=== PATIENT | female | born 1995 | race Caucasian/White ===

== ENCOUNTER 2017-01-01 14:48 | Emergency (ER) | payer BC ==
[2017-01-01 15:01] VITALS: BP 116/74
[2017-01-01] MEDS ORDERED: Lidocaine 1% 50 ML MDV SUBCUT STA (15:29)
[2017-01-01] MEDS ORDERED: Diphtheria,Pertussis(Acell),Tetanus Vaccine 0.5 ML SDV inactive IM ONE (15:29)
--- NOTE | 2017-01-01 15:29 | EDM.PDOC ---
ED HPI Trauma - General Chief Complaint: Upper Extremity Injury/Pain Stated Complaint: Laceration Time Seen by Provider: 01/01/17 15:20 Source: Reports: Patient, RN notes reviewed History Limitations: Reports: No limitations - History of Present Illness INITIAL COMMENTS - FREE TEXT/NARRATIVE: 21 year old female presents to the ED today with a laceration to the base of her right thumb. 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 Her last tetanus is unknown. The injury occurred around 2pm this afternoon. She has good movement. No loss of sensation. No crush type injury. Allergies/ADRs: Allergies No Known Allergies Allergy (Verified 01/01/17 14:57) Home Medications: Ambulatory Orders . [No Known Home Meds] 07/22/15 [Confirmed 01/01/17] Past Medical History - Past Health History Medical/Surgical History: Denies Medical/Surgical History Social & Family History - Tobacco Use Smoking Status *Q: Never Smoker Second Hand Smoke Exposure: No - Recreational Drug Use Recreational Drug Use: No Review of Systems - Review of Systems Review Of Systems: See Below Constitutional: Reports: no symptoms. Denies: fever Skin: Reports: wound Neurological: Reports: No Symptoms. Denies: Numbness, Tingling Trauma Exam - Physical Exam Exam: See Below Exam Limited By: No limitations General Appearance: Reports: alert, WD/WN, no apparent distress Extremities: Reports: no evidence of injury, normal range of motion, other ( full flexion and extension of right thumb. no tendon injury) Neurologic: Reports: no motor/sensory deficits Skin: Reports: Other (2.5cm laceration to the web between the thumb and index finger. ) ED TRAUMA EXTREMITY PROCEDURES - Laceration/Wound Repair Right Hand Lac/wound length in cm: 2.5 Appearance: subcutaneous, linear, clean Distal NVT: neuro & vascular intact, no tendon injury Anesthetic type: local Local anesthesia - Lidocaine (Xylocaine): 1% plain Local anesthetic volume: 4cc Exploration/Debridement/Repair: wound explored, in a bloodless field, explored to base, no foreign material found Suture size: 4-0 # of sutures: 5 Suture type: nylon, interrupted, simple Tetanus status addressed: Yes (tdap ordered) Complications: No Course - Vital Signs Last Recorded V/S: Last Vital Signs Temp 98.8 F 01/01/17 14:58 Pulse 95 01/01/17 14:58 Resp 16 01/01/17 14:58 BP 116/74 01/01/17 14:58 Pulse Ox 98 01/01/17 14:58 - Orders/Labs/Meds Orders: Active Orders 24 hr Category Date Time Status Vaccines to be Administered [RC] PER UNIT ROUTINE Care 01/01/17 15:29 Ordered Meds: Medications Discontinued Medications Generic Name Dose Route Start Last Admin Trade Name Shraddha PRN Reason Stop Dose Admin Diphtheria/Tetanus/Acell Pertussis 0.5 ml 01/01/17 15:29 01/01/17 15:50 Boostrix IM 01/01/17 15:30 0.5 ml .ONCE ONE Administration Lidocaine HCl 50 ml 01/01/17 15:29 01/01/17 15:49 Xylocaine 1% SUBCUT 01/01/17 15:30 50 ml NOW STA Administration Departure - Departure Time of Disposition: 16:17 Disposition: Home, Self-Care 01 Condition: good Clinical Impression: Laceration Referrals: José Moran MD [Primary Care Provider] - Forms: ED Department Discharge Additional Instructions: Laceration with suture repair Try to keep initial dressing in place for 24 hours After 24 hours, you can gently wash the wound with gentle soap and water Do not submerge the area in water until the sutures are out Apply antibiotic ointment and keep the wound covered for first 2-3 days then leave open to air Keep wound covered if there is a chance it can get dirty Sutures need to be removed in 7 days [facility] removes sutures for free. Their hours are 9am-6pm Thursday through Thursday. Return to clinic if signs or symptoms of infection arise, including increased redness, swelling, drainage, or fever Tylenol or Ibuprofen as needed for pain - My Orders Last 24 Hours: My Active Orders 01/01/17 15:29 Vaccines to be Administered [RC] PER UNIT ROUTINE - Assessment/Plan Last 24 Hours: My Active Orders 01/01/17 15:29 Vaccines to be Administered [RC] PER UNIT ROUTINE
== END 2017-01-01 16:34 | disposition home or self-care (01) ==
LOC: JD.ED 14:48
DX: S61.411A Laceration without foreign body of right hand, initial encounter (principal); Z23 Encounter for immunization; W22.8XXA Striking against or struck by other objects, initial encounter; Y99.0 Civilian activity done for income or pay
CPT/HCPCS: 12001; 90471; 90715; 99282; 99283-25

== ENCOUNTER 2020-11-29 05:14 | Inpatient (IN) | payer OTHER ==
[~2020-11-29 05:14] MED LIST: Morphine PF 10 MG/10 ML SDV ONE; Oxytocin 10 Units/1 ML SDV ONE; Sodium Chloride 0.9% 10 ML Syringe FLUSH PRN; ceFAZolin 1 GM Vial ONE; fentaNYL 100 MCG/2 ML SDV ONE
[2020-11-29] MEDS: Lactated Ringers 1,000 ML IV SCH ×2 (06:23→07:12)
--- NOTE | 2020-11-29 06:37 | PCM.PREANE ---
Preanesthetic Assessment - Procedure Proposed Procedure: Primary section - Anesthesia/Transfusion/Family Hx Anesthesia History: Prior Anesthesia Without Reaction Transfusion History: No Prior Transfusion(s) - Review of Systems General: No Symptoms Pulmonary: No Symptoms Cardiovascular: No Symptoms Gastrointestinal: No Symptoms Neurological: No Symptoms Other: Reports: None - Physical Assessment NPO Status Date: 11/28/20 NPO Status Time: 20:00 Vital Signs: Last Vital Signs Temp 98.1 F 11/29/20 05:31 Pulse 106 H 11/29/20 05:31 Resp 14 11/29/20 05:31 BP 138/95 H 11/29/20 05:31 Pulse Ox 94 L 11/29/20 05:31 Height: 1.78 m ASA Class: 2 Mental Status: Alert & Oriented x3 Airway Class: Mallampati = 2 Dentition: Reports: Normal Dentition Thyro-Mental Finger Breadths: 3 Mouth Opening Finger Breadths: 3 ROM/Head Extension: Full Lungs: Clear to Auscultation, Normal Respiratory Effort Cardiovascular: Regular Rate, Regular Rhythm - Lab Values: Laboratory Last Values WBC 7.18 K/mm3 (3.98-10.04) 11/29/20 05:40 RBC 3.59 M/mm3 (3.98-5.22) L 11/29/20 05:40 Hgb 11.1 gm/dl (11.2-15.7) L D 11/29/20 05:40 Hct 33.7 % (34.1-44.9) L 11/29/20 05:40 MCV 93.9 fl (79.4-94.8) 11/29/20 05:40 MCH 30.9 pg (25.6-32.2) 11/29/20 05:40 MCHC 32.9 g/dl (32.2-35.5) 11/29/20 05:40 RDW Std Deviation 43.4 fL (36.4-46.3) 11/29/20 05:40 Plt Count 166 K/mm3 (182-369) L 11/29/20 05:40 MPV 12.7 fl (9.4-12.3) H 11/29/20 05:40 Neut % (Auto) 74.2 % (34.0-71.1) H 11/29/20 05:40 Lymph % (Auto) 17.4 % (19.3-51.7) L 11/29/20 05:40 Blair % (Auto) 7.4 % (4.7-12.5) 11/29/20 05:40 Eos % (Auto) 0.4 (0.7-5.8) L 11/29/20 05:40 Baso % (Auto) 0.3 % (0.1-1.2) 11/29/20 05:40 Neut # (Auto) 5.33 K/mm3 (1.56-6.13) 11/29/20 05:40 Lymph # (Auto) 1.25 K/mm3 (1.18-3.74) 11/29/20 05:40 Blair # (Auto) 0.53 K/mm3 (0.24-0.36) H 11/29/20 05:40 Eos # (Auto) 0.03 K/mm3 (0.04-0.36) L 11/29/20 05:40 Baso # (Auto) 0.02 K/mm3 (0.01-0.08) 11/29/20 05:40 - Allergies Allergies/Adverse Reactions: Allergies Allergy/AdvReac Type Severity Reaction Status Date / Time No Known Allergies Allergy Verified 11/28/20 21:44 - Acknowledgements Anesthesia Type Planned: Spinal Pt an Appropriate Candidate for the Planned Anesthesia: Yes Alternatives and Risks of Anesthesia Discussed w Pt/Guardian: Yes Pt/Guardian Understands and Agrees with Anesthesia Plan: Yes PreAnesthesia Questionnaire - Past Health History Medical/Surgical History: Denies Medical/Surgical History HEENT History: Reports: Impaired Vision [employer] History: Reports: - Past Surgical History HEENT Surgical History: Reports: Adenoidectomy, Tonsillectomy Female Surgical History: Reports: Cystectomy - SUBSTANCE USE Tobacco Use Status *Q: Never Tobacco User Second Hand Smoke Exposure: No Recreational Drug Use History: No - HOME MEDS Home Medications: Home Meds Vits #93/Iron Fum/FA [ Formula Tablet] 1 each PO DAILY 11/14/20 [History] Ondansetron [Zofran] 8 mg PO Q8H PRN 11/28/20 [History] Wheat Dextrin [Benefiber] 1 pack PO DAILY 11/28/20 [History] - CURRENT (IN HOUSE) MEDS Current Meds: Current Medications Citric Acid/Sodium Citrate (Citric Acid/Sodium Citrate Solution 30 Ml Cup) 30 ml PO ONETIME ONE Stop: 11/29/20 07:01 Cefazolin Sodium/Dextrose 2 gm (/ Premix) 50 mls @ 100 mls/hr IV ONETIME ONE Stop: 11/29/20 07:29 Lactated Ringer's (Ringers, Lactated) 1,000 mls @ 125 mls/hr IV ASDIRECTED REEMA Metoclopramide HCl (Metoclopramide 10 Mg/2 Ml Sdv) 10 mg IVPUSH ONETIME ONE Stop: 11/29/20 07:01 Oxytocin (Oxytocin 10 Units/1 Ml Sdv) 10 unit IV ONETIME ONE Stop: 11/29/20 07:01 Sodium Chloride (Sodium Chloride 0.9% 10 Ml Syringe) 10 ml FLUSH ASDIRECTED PRN PRN Reason: Keep Vein Open Discontinued Medications Cefazolin Sodium (Cefazolin 1 Gm Vial) Confirm Administered Dose 2 gm .ROUTE .STK-MED ONE Stop: 11/29/20 03:48 Fentanyl (Fentanyl 100 Mcg/2 Ml Sdv) Confirm Administered Dose 100 mcg .ROUTE .STK-MED ONE Stop: 11/29/20 03:48 Morphine Sulfate (Morphine Pf 10 Mg/10 Ml Sdv) Confirm Administered Dose 10 mg .ROUTE .STK-MED ONE Stop: 11/29/20 03:49 Oxytocin (Oxytocin 10 Units/1 Ml Sdv) Confirm Administered Dose 20 unit .ROUTE .STK-MED ONE Stop: 11/29/20 03:48
--- NOTE | 2020-11-29 06:52 | PCM.OPNOTE ---
- General Post-Op/Procedure Note Date of Surgery/Procedure: 11/29/20 Operative Procedure(s): Primary low transverse Findings: Baby boy in a breech presentation. Weight of 8 lbs 10 oz. of 9 & 9. Normal appearance of the uterus, fallopian tubes, and ovaries. Pre Op Diagnosis: 39 3/7 weeks gestation. Breech presentation Post-Op Diagnosis: Same Anesthesia Technique: Spinal Primary Surgeon: Marta Pressley Secondary Surgeon: Melanie Espitia Anesthesia Provider: Jatinder Partida Reason Summer Counselor Was Necessary: Speed, safety of procedure Pathology: Cord blood collected. Placenta discarded Fluid Replacement, Intraop: 1,900 Output, Urine Amount: 125 EBL in mLs: 500 Complications: None Condition: Good Free Text/Narrative:: The risks, benefits, indications, potential complications, and alternatives were explained to the patient and informed consent obtained. After induction of anesthesia, the patient was placed in a supine position and then draped and prepped in the usual sterile manner. A Pfannenstiel incision was made and carried down through the subcutaneous tissue to the fascia. Fascial incision was made and extended transversely. The fascia was from the underlying rectus tissue superiorly and inferiorly. The peritoneum was identified and entered. Peritoneal incision was extended longitudinally. The utero-vesical peritoneal reflection was incised transversely and the bladder flap was bluntly freed from the lower uterine segment. A low transverse uterine incision was made sharply with a scalpel and extended bluntly in a cephalocaudad direction. A baby boy was delivered from breech presentation with APGARS as above. After the umbilical cord was clamped and cut cord blood was obtained for evaluation. The placenta was removed intact and appeared normal. The uterus was exteriorized and cleared of clots. The uterine outline, tubes and ovaries appeared normal. The uterine incision was closed with running locked sutures of 0 Vicryl. Hemostasis was noted. The uterus was then placed back into the abdomen. The infracolic gutters were cleared of blood clots. The fascia was then reapproximated with running sutures of 0 Vicryl. The subcutaneous tissue was irrigated with sterile warm normal saline, hemostasis obtained with cautery. This layer was also closed with a running 0 Vicryl. The skin was reapproximated with running Subcuticular 4-0 Monocryl sutures. The incision was sealed with Dermabond. Instrument, sponge, and needle counts were correct prior the abdominal closure and at the conclusion of the case.
[2020-11-29] MEDS ORDERED: ceFAZolin 2 GM in Premix Bag 1 BAG IV ONE (07:00)
[2020-11-29] MEDS ORDERED: Metoclopramide 10 MG/2 ML SDV IVPUSH ONE (07:00)
[2020-11-29] MEDS ORDERED: Oxytocin 10 Units/1 ML SDV IV ONE (07:00)
[2020-11-29] MEDS ORDERED: Citric Acid/Sodium Citrate Solution 30 ML Cup PO ONE (07:00)
[2020-11-29] MEDS ORDERED: ePHEDrine 50 MG/ML SDV ONE (07:51)
[2020-11-29] MEDS ORDERED: Lactated Ringers 1,000 ML ONE (07:58)
[2020-11-29] MEDS ORDERED: fentaNYL 100 MCG/2 ML SDV IVPUSH PRN (08:00)
[2020-11-29] MEDS ORDERED: diphenhydrAMINE 50 MG/ML SDV IVPUSH PRN ×2 (08:00→13:05)
[2020-11-29] MEDS ORDERED: Ondansetron 4 MG/2 ML SDV IVPUSH PRN (08:00)
[2020-11-29] MEDS ORDERED: Ketorolac 30 MG/ML SDV ONE (08:09)
[2020-11-29] MEDS ORDERED: Meperidine 50 MG/ML Vial IVPUSH ONE (08:53)
--- NOTE | 2020-11-29 08:58 | PCM.POSTAN ---
POST ANESTHESIA ASSESSMENT - MENTAL STATUS Mental Status: Alert, Oriented - VITAL SIGNS Vital Signs: Post procedure vitals at 08:27 113/72 113 HR 20 RR 98% 97.2 F - RESPIRATORY Respiratory Status: Respiratory Rate WNL, Airway Patent, O2 Saturation Stable - CARDIOVASCULAR CV Status: Pulse Rate WNL, Blood Pressure Stable - GASTROINTESTINAL GI Status: No Symptoms - PAIN Pain Score: 0 (post SAB) - POST OP HYDRATION Hydration Status: Adequate & Stable
[2020-11-29] MEDS ORDERED: Ondansetron 4 MG/2 ML SDV IV PRN (13:05)
[2020-11-29] MEDS ORDERED: Naloxone 0.4 MG/ML SDV IVPUSH PRN (13:05)
[2020-11-29] MEDS ORDERED: Acetaminophen/oxyCODONE 325-5 MG Tab PO PRN (13:05)
[2020-11-29] MEDS ORDERED: ePHEDrine 50 MG/ML SDV IVPUSH PRN (13:05)
[2020-11-29] MEDS ORDERED: Dextrose 5%-Lactated Ringers 1,000 ML IV SCH (13:05)
[2020-11-29] MEDS: Ketorolac 30 MG/ML SDV IVPUSH SCH ×2 (14:08→20:19)
[2020-11-29] MEDS: Acetaminophen/oxyCODONE 325-5 MG Tab PO PRN (19:32)
[2020-11-30] MEDS: Ketorolac 30 MG/ML SDV IVPUSH SCH (01:57)
[2020-11-30] MEDS: Acetaminophen/oxyCODONE 325-5 MG Tab PO PRN ×5 (01:58→23:26)
[2020-11-30] MEDS: Docusate Sodium 100 MG Cap PO PRN ×2 (06:54→21:09)
--- NOTE | 2020-11-30 07:39 | PCM48HPAN ---
Post Anesthesia Note - EVALUATION WITHIN 48HRS OF ANESTHETIC Vital Signs in Normal Range: Yes Patient Participated in Evaluation: Yes Respiratory Function Stable: Yes Airway Patent: Yes Cardiovascular Function Stable: Yes Hydration Status Stable: Yes Pain Control Satisfactory: Yes Nausea and Vomiting Control Satisfactory: Yes Mental Status Recovered: Yes Vital Signs: Last Vital Signs Temp 36.6 C 11/30/20 04:35 Pulse 79 11/30/20 04:35 Resp 18 11/30/20 04:35 BP 144/87 H 11/30/20 04:35 Pulse Ox 97 11/30/20 07:00
--- NOTE | 2020-11-30 08:23 | PCM.PNPP ---
- General Info Date of Service: 11/30/20 Functional Status: Reports: Pain Controlled, Tolerating Diet, Ambulating, Urinating - Review of Systems General: Reports: No Symptoms Pulmonary: Reports: No Symptoms Cardiovascular: Reports: No Symptoms Gastrointestinal: Reports: No Symptoms Genitourinary: Reports: No Symptoms Musculoskeletal: Reports: No Symptoms - Patient Data Vital Signs - Most Recent: Last Vital Signs Temp 36.6 C 11/30/20 04:35 Pulse 79 11/30/20 04:35 Resp 18 11/30/20 04:35 BP 144/87 H 11/30/20 04:35 Pulse Ox 97 11/30/20 07:00 Weight - Most Recent: 95.396 kg I&O - Last 24 Hours: Intake & Output 11/29/20 11/30/20 11/30/20 22:59 06:59 14:59 Intake Total 240 1000 Output Total 2300 4450 Balance -2059 -3450 Lab Results - Last 24 Hours: Laboratory Results - last 24 hr 11/29/20 11/29/20 11/30/20 Range/Units 05:40 05:40 05:38 WBC 9.14 (3.98-10.04) K/mm3 RBC 3.27 L (3.98-5.22) M/mm3 Hgb 9.9 L (11.2-15.7) gm/dl Hct 30.7 L (34.1-44.9) % MCV 93.9 (79.4-94.8) fl MCH 30.3 (25.6-32.2) pg MCHC 32.2 (32.2-35.5) g/dl RDW Std Deviation 43.6 (36.4-46.3) fL Plt Count 155 L (182-369) K/mm3 MPV 12.9 H (9.4-12.3) fl RPR Non-reactive (NONREACTIVE) Blood Type A POSITIVE Gel Antibody Screen Negative Med Orders - Current: Current Medications Diphenhydramine HCl (Diphenhydramine 50 Mg/Ml Sdv) 25 mg IVPUSH Q6H PRN PRN Reason: Pruritis Diphenhydramine HCl (Diphenhydramine 50 Mg/Ml Sdv) 25 mg IVPUSH Q6H PRN PRN Reason: Itching or Nausea Docusate Sodium (Docusate Sodium 100 Mg Cap) 100 mg PO Q12H PRN PRN Reason: Constipation Last Admin: 11/30/20 06:54 Dose: 100 mg Documented by: Ephedrine Sulfate (Ephedrine 50 Mg/Ml Sdv) 5 mg IVPUSH SEECOMMENT PRN PRN Reason: Other Fentanyl (Fentanyl 100 Mcg/2 Ml Sdv) 50 mcg IVPUSH Q5M PRN PRN Reason: Pain Ibuprofen (Ibuprofen 600 Mg Tab) 600 mg PO Q6H PRN PRN Reason: mild pain or fever Naloxone HCl (Naloxone 0.4 Mg/Ml Sdv) 0.1 mg IVPUSH SEECOMMENT PRN PRN Reason: Respiratory Depression Ondansetron HCl (Ondansetron 4 Mg/2 Ml Sdv) 4 mg IVPUSH ONETIME PRN PRN Reason: Nausea/Vomiting Ondansetron HCl (Ondansetron 4 Mg/2 Ml Sdv) 4 mg IV Q8H PRN PRN Reason: Nausea/Vomiting Oxycodone/Acetaminophen (Acetaminophen/Oxycodone 325-5 Mg Tab) 1 tab PO Q4H PRN PRN Reason: Pain (moderate 4-6) Last Admin: 11/30/20 01:58 Dose: 1 tab Documented by: Oxycodone/Acetaminophen (Acetaminophen/Oxycodone 325-5 Mg Tab) 2 tab PO Q4H PRN PRN Reason: Pain (severe 7-10) Last Admin: 11/30/20 06:49 Dose: 2 tab Documented by: Discontinued Medications Cefazolin Sodium (Cefazolin 1 Gm Vial) Confirm Administered Dose 2 gm .ROUTE .STK-MED ONE Stop: 11/29/20 03:48 Citric Acid/Sodium Citrate (Citric Acid/Sodium Citrate Solution 30 Ml Cup) 30 ml PO ONETIME ONE Stop: 11/29/20 07:01 Last Admin: 11/29/20 07:14 Dose: 30 ml Documented by: Ephedrine Sulfate (Ephedrine 50 Mg/Ml Sdv) Confirm Administered Dose 50 mg .ROUTE .STK-MED ONE Stop: 11/29/20 07:52 Fentanyl (Fentanyl 100 Mcg/2 Ml Sdv) Confirm Administered Dose 100 mcg .ROUTE .STK-MED ONE Stop: 11/29/20 03:48 Cefazolin Sodium/Dextrose 2 gm (/ Premix) 50 mls @ 100 mls/hr IV ONETIME ONE Stop: 11/29/20 07:29 Last Admin: 11/29/20 13:46 Dose: Not Given Documented by: Lactated Ringer's (Ringers, Lactated) 1,000 mls @ 125 mls/hr IV ASDIRECTED [facility] Last Admin: 11/29/20 07:12 Dose: 125 mls/hr Documented by: Lactated Ringer's (Ringers, Lactated) Confirm Administered Dose 1,000 mls @ as directed .ROUTE .STK-MED ONE Stop: 11/29/20 07:59 Dextrose/Lactated Ringer's (Dextrose 5%-Lactated Ringers) 1,000 mls @ 125 mls/hr IV ASDIRECTED [facility] Stop: 11/29/20 21:04 Last Admin: 11/29/20 14:20 Dose: 125 mls/hr Documented by: Ketorolac Tromethamine (Ketorolac 30 Mg/Ml Sdv) Confirm Administered Dose 30 mg .ROUTE .STK-MED ONE Stop: 11/29/20 08:10 Ketorolac Tromethamine (Ketorolac 30 Mg/Ml Sdv) 30 mg IVPUSH Q6H [facility] Stop: 11/30/20 02:31 Last Admin: 11/30/20 01:57 Dose: 30 mg Documented by: Meperidine HCl (Meperidine 50 Mg/Ml Vial) 25 mg IVPUSH ONETIME ONE Stop: 11/29/20 08:54 Last Admin: 11/29/20 08:59 Dose: 25 mg Documented by: Metoclopramide HCl (Metoclopramide 10 Mg/2 Ml Sdv) 10 mg IVPUSH ONETIME ONE Stop: 11/29/20 07:01 Last Admin: 11/29/20 07:15 Dose: 10 mg Documented by: Morphine Sulfate (Morphine Pf 10 Mg/10 Ml Sdv) Confirm Administered Dose 10 mg .ROUTE .STK-MED ONE Stop: 11/29/20 03:49 Oxytocin (Oxytocin 10 Units/1 Ml Sdv) 10 unit IV ONETIME ONE Stop: 11/29/20 07:01 Last Admin: 11/29/20 13:46 Dose: Not Given Documented by: Oxytocin (Oxytocin 10 Units/1 Ml Sdv) Confirm Administered Dose 20 unit .ROUTE .STK-MED ONE Stop: 11/29/20 03:48 Sodium Chloride (Sodium Chloride 0.9% 10 Ml Syringe) 10 ml FLUSH ASDIRECTED PRN PRN Reason: Keep Vein Open - Interaction Infant Disposition, : in Room with Family Infant Interaction: Holding Infant Feeding: Breastfed ; Nursed Well Support Person: - Recovery Exam Fundal Tone: Firm Fundal Level: At Umbilicus Fundal Placement: Midline Lochia Amount: Small Lochia Color: Rubra/Red Perineum Description: Intact, Minimal Bruising/Swelling Bladder Status: Voiding - Exam General: Alert, Oriented, Cooperative Lungs: Clear to Auscultation, Normal Respiratory Effort Cardiovascular: Regular Rate, Regular Rhythm GI/Abdominal Exam: Soft, Non-Tender Extremities: Normal Inspection Skin: Warm, Dry, Intact Wound/Incisions: Healing Well, No Drainage - Problem List & Annotations (1) 39 weeks gestation of SNOMED Code(s): 48303189 Code(s): Z3A.39 - 39 WEEKS GESTATION OF Status: Acute Current Visit: Yes (2) Breech presentation of fetus SNOMED Code(s): 8304421 Code(s): O32.1XX0 - MATERNAL CARE FOR BREECH PRESENTATION, UNSP Status: Acute Current Visit: Yes Qualifiers: Fetus number: single or unspecified fetus Qualified Code(s): O32.1XX0 - Maternal care for breech presentation, not applicable or unspecified (3) S/P primary low transverse SNOMED Code(s): 178323567, 86907082, 651538727, 753624473, [id number] Code(s): Z98.891 - HISTORY OF UTERINE SCAR FROM PREVIOUS SURGERY Status: Acute Current Visit: Yes - Problem List Review Problem List Initiated/Reviewed/Updated: Yes - My Orders Last 24 Hours: My Active Orders 11/29/20 13:05 Acetaminophen/oxyCODONE [Percocet 325-5 MG] 1 tab PO Q4H PRN Acetaminophen/oxyCODONE [Percocet 325-5 MG] 2 tab PO Q4H PRN Docusate Sodium [Colace] 100 mg PO Q12H PRN Naloxone [Narcan] 0.1 mg IVPUSH SEECOMMENT PRN Ondansetron [Zofran] 4 mg IV Q8H PRN diphenhydrAMINE [Benadryl] 25 mg IVPUSH Q6H PRN ePHEDrine [ePHEDrine sulfate] 5 mg IVPUSH SEECOMMENT PRN 11/29/20 13:05 Activity as Tolerated [RC] .Routine Antiembolic Devices [RC] PER UNIT ROUTINE Intake and Output [RC] Q4H May Shower [RC] PER UNIT ROUTINE Notify Provider Intake and Out [RC] ASDIRECTED RT Incentive Spirometry [RC] Q2HWA Assess Lochia [WOMSER] Per Unit Routine Assess Uterine Involution [WOMSER] Per Unit Routine Breast Pump [WOMSER] Per Unit Routine Heat Therapy [OM.PC] Per Unit Routine Peripheral IV Discontinue [OM.PC] Routine Sequential Compression Device [OM.PC] Per Unit Routine 11/30/20 08:00 Ibuprofen [Motrin] 600 mg PO Q6H PRN 11/30/20 08:41 Urinary Catheter Removal [RC] Per Unit Routine - Assessment Assessment:: POD#1 - Plan Plan:: Routine cares Breast feeding Discharge home in 1-2 days
[2020-11-30] MEDS: Ibuprofen 600 MG Tab PO PRN ×3 (10:08→21:35)
[2020-12-01] MEDS: Ibuprofen 600 MG Tab PO PRN ×2 (03:30→08:42)
[2020-12-01] MEDS: Acetaminophen/oxyCODONE 325-5 MG Tab PO PRN ×3 (05:34→13:53)
[2020-12-01] MEDS: Docusate Sodium 100 MG Cap PO PRN (08:42)
--- NOTE | 2020-12-01 10:17 | PCM.DCSUM1 ---
<Hannah,Jomar - Last Filed: 12/01/20 10:10> Discharge Summary - Hospital Course HPI Initial Comments: Patient is a 25 year old A+ GBS - G1 now P1 who is PPD#2 primary on 11/29/20 for breech presentation with failed attempted external cephalic version. Patient is doing well today; she is passing flatus but not has yet had a bowel movement. She reports that breast feeding is going well. Brief History: Justin is a G1 now P1 who underwent uncomplicated primary c- section for breech presentation on 11/29/20 following a failed external cephalic version on 11/14/20 with live brith of a male weighing 8lbs 1 ounce with APGARs of 9/9. course is uneventful. - Discharge Data Discharge Date: 12/01/20 Discharge Disposition: Home, Self-Care 01 Condition: Good - Referral to Home Health Primary Care Physician: Collette Valentin NP - Discharge Diagnosis/Problem(s) (1) 39 weeks gestation of SNOMED Code(s): 89829917 ICD Code: Z3A.39 - 39 WEEKS GESTATION OF Status: Acute Current Visit: Yes (2) Breech presentation of fetus SNOMED Code(s): 3865571 ICD Code: O32.1XX0 - MATERNAL CARE FOR BREECH PRESENTATION, UNSP Status: Acute Current Visit: Yes Qualifiers: Fetus number: single or unspecified fetus Qualified Code(s): O32.1XX0 - Maternal care for breech presentation, not applicable or unspecified (3) S/P primary low transverse SNOMED Code(s): 144194913, 49393437, 361606147, 486098721, 712247527 ICD Code: Z98.891 - HISTORY OF UTERINE SCAR FROM PREVIOUS SURGERY Status: Acute Current Visit: Yes - Patient Summary/Data Operative Procedure(s) Performed: Primary low transverse - Patient Instructions Diet: Regular Diet as Tolerated - Discharge Plan *PRESCRIPTION DRUG MONITORING PROGRAM REVIEWED*: Yes *COPY OF PRESCRIPTION DRUG MONITORING REPORT IN PATIENT LATRICE: Yes Prescriptions/Med Rec: oxyCODONE HCl/Acetaminophen [Percocet 5-325 mg Tablet] 1 each PO Q6H #15 tablet Home Medications: Home Meds Vits #93/Iron Fum/FA [ Formula Tablet] 1 each PO DAILY 11/14/20 [History] Wheat Dextrin [Benefiber] 1 pack PO DAILY 11/28/20 [History] Docusate Sodium [Colace] 100 mg PO Q12H PRN #0 cap 12/01/20 [Rx] Ibuprofen [Motrin] 600 mg PO Q6H PRN 15 Days #0 tablet 12/01/20 [Rx] oxyCODONE HCl/Acetaminophen [Percocet 5-325 mg Tablet] 1 each PO Q6H #15 tablet 12/01/20 [Rx] Referrals: Marta Pressley MD [Physician] - (To call make appointment for 2 weeks) - Discharge Summary/Plan Comment DC Time >30 min.: No - General Info Date of Service: 12/01/20 Functional Status: Reports: Pain Controlled, Tolerating Diet, Ambulating, Urinating - Review of Systems General: Reports: No Symptoms HEENT: Reports: No Symptoms Pulmonary: Reports: No Symptoms Cardiovascular: Reports: No Symptoms Gastrointestinal: Reports: No Symptoms Genitourinary: Reports: No Symptoms Musculoskeletal: Reports: No Symptoms Skin: Reports: No Symptoms - Patient Data Vitals - Most Recent: Last Vital Signs Temp 98.1 F 12/01/20 02:42 Pulse 74 12/01/20 02:42 Resp 16 12/01/20 02:42 BP 141/83 H 12/01/20 02:42 Pulse Ox 99 12/01/20 02:42 Weight - Most Recent: 210 lb 5 oz I&O - Last 24 hours: Intake & Output 11/30/20 12/01/20 12/01/20 22:59 06:59 14:59 Intake Total 180 Balance 180 Lab Results - Last 24 hrs: Laboratory Results - last 24 hr 11/29/20 Range/Units 05:40 Hepatitis C Antibody <0.1 (0.0-0.9) s/co ratio Med Orders - Current: Current Medications Diphenhydramine HCl (Diphenhydramine 50 Mg/Ml Sdv) 25 mg IVPUSH Q6H PRN PRN Reason: Pruritis Diphenhydramine HCl (Diphenhydramine 50 Mg/Ml Sdv) 25 mg IVPUSH Q6H PRN PRN Reason: Itching or Nausea Docusate Sodium (Docusate Sodium 100 Mg Cap) 100 mg PO Q12H PRN PRN Reason: Constipation Last Admin: 12/01/20 08:42 Dose: 100 mg Documented by: Ephedrine Sulfate (Ephedrine 50 Mg/Ml Sdv) 5 mg IVPUSH SEECOMMENT PRN PRN Reason: Other Fentanyl (Fentanyl 100 Mcg/2 Ml Sdv) 50 mcg IVPUSH Q5M PRN PRN Reason: Pain Ibuprofen (Ibuprofen 600 Mg Tab) 600 mg PO Q6H PRN PRN Reason: mild pain or fever Last Admin: 12/01/20 08:42 Dose: 600 mg Documented by: Naloxone HCl (Naloxone 0.4 Mg/Ml Sdv) 0.1 mg IVPUSH SEECOMMENT PRN PRN Reason: Respiratory Depression Ondansetron HCl (Ondansetron 4 Mg/2 Ml Sdv) 4 mg IVPUSH ONETIME PRN PRN Reason: Nausea/Vomiting Ondansetron HCl (Ondansetron 4 Mg/2 Ml Sdv) 4 mg IV Q8H PRN PRN Reason: Nausea/Vomiting Oxycodone/Acetaminophen (Acetaminophen/Oxycodone 325-5 Mg Tab) 1 tab PO Q4H PRN PRN Reason: Pain (moderate 4-6) Last Admin: 12/01/20 05:34 Dose: 1 tab Documented by: Oxycodone/Acetaminophen (Acetaminophen/Oxycodone 325-5 Mg Tab) 2 tab PO Q4H PRN PRN Reason: Pain (severe 7-10) Last Admin: 11/30/20 06:49 Dose: 2 tab Documented by: Discontinued Medications Cefazolin Sodium (Cefazolin 1 Gm Vial) Confirm Administered Dose 2 gm .ROUTE .STK-MED ONE Stop: 11/29/20 03:48 Citric Acid/Sodium Citrate (Citric Acid/Sodium Citrate Solution 30 Ml Cup) 30 ml PO ONETIME ONE Stop: 11/29/20 07:01 Last Admin: 11/29/20 07:14 Dose: 30 ml Documented by: Ephedrine Sulfate (Ephedrine 50 Mg/Ml Sdv) Confirm Administered Dose 50 mg .ROUTE .STK-MED ONE Stop: 11/29/20 07:52 Fentanyl (Fentanyl 100 Mcg/2 Ml Sdv) Confirm Administered Dose 100 mcg .ROUTE .STK-MED ONE Stop: 11/29/20 03:48 Cefazolin Sodium/Dextrose 2 gm (/ Premix) 50 mls @ 100 mls/hr IV ONETIME ONE Stop: 11/29/20 07:29 Last Admin: 11/29/20 13:46 Dose: Not Given Documented by: Lactated Ringer's (Ringers, Lactated) 1,000 mls @ 125 mls/hr IV ASDIRECTED [facility] Last Admin: 11/29/20 07:12 Dose: 125 mls/hr Documented by: Lactated Ringer's (Ringers, Lactated) Confirm Administered Dose 1,000 mls @ as directed .ROUTE .STK-MED ONE Stop: 11/29/20 07:59 Dextrose/Lactated Ringer's (Dextrose 5%-Lactated Ringers) 1,000 mls @ 125 mls/hr IV ASDIRECTED [facility] Stop: 11/29/20 21:04 Last Admin: 11/29/20 14:20 Dose: 125 mls/hr Documented by: Ketorolac Tromethamine (Ketorolac 30 Mg/Ml Sdv) Confirm Administered Dose 30 mg .ROUTE .STK-MED ONE Stop: 11/29/20 08:10 Ketorolac Tromethamine (Ketorolac 30 Mg/Ml Sdv) 30 mg IVPUSH Q6H [facility] Stop: 11/30/20 02:31 Last Admin: 11/30/20 01:57 Dose: 30 mg Documented by: Meperidine HCl (Meperidine 50 Mg/Ml Vial) 25 mg IVPUSH ONETIME ONE Stop: 11/29/20 08:54 Last Admin: 11/29/20 08:59 Dose: 25 mg Documented by: Metoclopramide HCl (Metoclopramide 10 Mg/2 Ml Sdv) 10 mg IVPUSH ONETIME ONE Stop: 11/29/20 07:01 Last Admin: 11/29/20 07:15 Dose: 10 mg Documented by: Morphine Sulfate (Morphine Pf 10 Mg/10 Ml Sdv) Confirm Administered Dose 10 mg .ROUTE .STK-MED ONE Stop: 11/29/20 03:49 Oxytocin (Oxytocin 10 Units/1 Ml Sdv) 10 unit IV ONETIME ONE Stop: 11/29/20 07:01 Last Admin: 11/29/20 13:46 Dose: Not Given Documented by: Oxytocin (Oxytocin 10 Units/1 Ml Sdv) Confirm Administered Dose 20 unit .ROUTE .STK-MED ONE Stop: 11/29/20 03:48 Sodium Chloride (Sodium Chloride 0.9% 10 Ml Syringe) 10 ml FLUSH ASDIRECTED PRN PRN Reason: Keep Vein Open - Exam General: Reports: Alert, Oriented Lungs: Reports: Clear to Auscultation, Normal Respiratory Effort Cardiovascular: Reports: Regular Rate, Regular Rhythm GI/Abdominal Exam: Normal Bowel Sounds, Soft, Other (Mild tenderness) Extremities: Normal Inspection, Non-Tender, Normal Capillary Refill Skin: Reports: Warm, Dry, Intact Wound/Incisions: Reports: Healing Well Neurological: Reports: No New Focal Deficit Psy/Mental Status: Reports: Alert, Normal Affect, Normal Mood <Ga Jonas - Last Filed: 12/01/20 10:39> Discharge Summary - Referral to [facility] Primary Care Physician: Collette Valentin NP - Discharge Diagnosis/Problem(s) (1) 39 weeks gestation of SNOMED Code(s): 75671456 ICD Code: Z3A.39 - 39 WEEKS GESTATION OF Status: Acute Current Visit: Yes (2) Breech presentation of fetus SNOMED Code(s): 9817442 ICD Code: O32.1XX0 - MATERNAL CARE FOR BREECH PRESENTATION, UNSP Status: Acute Current Visit: Yes Qualifiers: Fetus number: single or unspecified fetus Qualified Code(s): O32.1XX0 - Maternal care for breech presentation, not applicable or unspecified (3) S/P primary low transverse SNOMED Code(s): 637673003, 02839788, 215130345, 042421335, 946366356 ICD Code: Z98.891 - HISTORY OF UTERINE SCAR FROM PREVIOUS SURGERY Status: Acute Current Visit: Yes - Patient Summary/Data Complications: None Consults: None Hospital Course: Uneventful - Patient Instructions Showering/Bathing: May Shower, No Tub Bathing/Swimming (6 weeks) Wound/Incision Care: Keep Operative Site/Wound Site Clean and Dry Notify Provider of: Fever, Increased Pain, Swelling and Redness, Drainage, Nausea and/or Vomiting - Patient Data Vitals - Most Recent: Last Vital Signs Temp 98.1 F 12/01/20 02:42 Pulse 74 12/01/20 02:42 Resp 16 12/01/20 02:42 BP 141/83 H 12/01/20 02:42 Pulse Ox 99 12/01/20 02:42 I&O - Last 24 hours: Intake & Output 11/30/20 12/01/20 12/01/20 22:59 06:59 14:59 Intake Total 180 Balance 180 Lab Results - Last 24 hrs: Laboratory Results - last 24 hr 11/29/20 Range/Units 05:40 Hepatitis C Antibody <0.1 (0.0-0.9) s/co ratio Med Orders - Current: Current Medications Diphenhydramine HCl (Diphenhydramine 50 Mg/Ml Sdv) 25 mg IVPUSH Q6H PRN PRN Reason: Pruritis Diphenhydramine HCl (Diphenhydramine 50 Mg/Ml Sdv) 25 mg IVPUSH Q6H PRN PRN Reason: Itching or Nausea Docusate Sodium (Docusate Sodium 100 Mg Cap) 100 mg PO Q12H PRN PRN Reason: Constipation Last Admin: 12/01/20 08:42 Dose: 100 mg Documented by: Ephedrine Sulfate (Ephedrine 50 Mg/Ml Sdv) 5 mg IVPUSH SEECOMMENT PRN PRN Reason: Other Fentanyl (Fentanyl 100 Mcg/2 Ml Sdv) 50 mcg IVPUSH Q5M PRN PRN Reason: Pain Ibuprofen (Ibuprofen 600 Mg Tab) 600 mg PO Q6H PRN PRN Reason: mild pain or fever Last Admin: 12/01/20 08:42 Dose: 600 mg Documented by: Naloxone HCl (Naloxone 0.4 Mg/Ml Sdv) 0.1 mg IVPUSH SEECOMMENT PRN PRN Reason: Respiratory Depression Ondansetron HCl (Ondansetron 4 Mg/2 Ml Sdv) 4 mg IVPUSH ONETIME PRN PRN Reason: Nausea/Vomiting Ondansetron HCl (Ondansetron 4 Mg/2 Ml Sdv) 4 mg IV Q8H PRN PRN Reason: Nausea/Vomiting Oxycodone/Acetaminophen (Acetaminophen/Oxycodone 325-5 Mg Tab) 1 tab PO Q4H PRN PRN Reason: Pain (moderate 4-6) Last Admin: 12/01/20 05:34 Dose: 1 tab Documented by: Oxycodone/Acetaminophen (Acetaminophen/Oxycodone 325-5 Mg Tab) 2 tab PO Q4H PRN PRN Reason: Pain (severe 7-10) Last Admin: 11/30/20 06:49 Dose: 2 tab Documented by: Discontinued Medications Cefazolin Sodium (Cefazolin 1 Gm Vial) Confirm Administered Dose 2 gm .ROUTE .STK-MED ONE Stop: 11/29/20 03:48 Citric Acid/Sodium Citrate (Citric Acid/Sodium Citrate Solution 30 Ml Cup) 30 ml PO ONETIME ONE Stop: 11/29/20 07:01 Last Admin: 11/29/20 07:14 Dose: 30 ml Documented by: Ephedrine Sulfate (Ephedrine 50 Mg/Ml Sdv) Confirm Administered Dose 50 mg .ROUTE .STK-MED ONE Stop: 11/29/20 07:52 Fentanyl (Fentanyl 100 Mcg/2 Ml Sdv) Confirm Administered Dose 100 mcg .ROUTE .STK-MED ONE Stop: 11/29/20 03:48 Cefazolin Sodium/Dextrose 2 gm (/ Premix) 50 mls @ 100 mls/hr IV ONETIME ONE Stop: 11/29/20 07:29 Last Admin: 11/29/20 13:46 Dose: Not Given Documented by: Lactated Ringer's (Ringers, Lactated) 1,000 mls @ 125 mls/hr IV ASDIRECTED [facility] Last Admin: 11/29/20 07:12 Dose: 125 mls/hr Documented by: Lactated Ringer's (Ringers, Lactated) Confirm Administered Dose 1,000 mls @ as directed .ROUTE .[facility] ONE Stop: 11/29/20 07:59 Dextrose/Lactated Ringer's (Dextrose 5%-Lactated Ringers) 1,000 mls @ 125 mls/hr IV ASDIRECTED [facility] Stop: 11/29/20 21:04 Last Admin: 11/29/20 14:20 Dose: 125 mls/hr Documented by: Ketorolac Tromethamine (Ketorolac 30 Mg/Ml Sdv) Confirm Administered Dose 30 mg .ROUTE .STK-MED ONE Stop: 11/29/20 08:10 Ketorolac Tromethamine (Ketorolac 30 Mg/Ml Sdv) 30 mg IVPUSH Q6H [facility] Stop: 11/30/20 02:31 Last Admin: 11/30/20 01:57 Dose: 30 mg Documented by: Meperidine HCl (Meperidine 50 Mg/Ml Vial) 25 mg IVPUSH ONETIME ONE Stop: 11/29/20 08:54 Last Admin: 11/29/20 08:59 Dose: 25 mg Documented by: Metoclopramide HCl (Metoclopramide 10 Mg/2 Ml Sdv) 10 mg IVPUSH ONETIME ONE Stop: 11/29/20 07:01 Last Admin: 11/29/20 07:15 Dose: 10 mg Documented by: Morphine Sulfate (Morphine Pf 10 Mg/10 Ml Sdv) Confirm Administered Dose 10 mg .ROUTE .STK-MED ONE Stop: 11/29/20 03:49 Oxytocin (Oxytocin 10 Units/1 Ml Sdv) 10 unit IV ONETIME ONE Stop: 11/29/20 07:01 Last Admin: 11/29/20 13:46 Dose: Not Given Documented by: Oxytocin (Oxytocin 10 Units/1 Ml Sdv) Confirm Administered Dose 20 unit .ROUTE .STK-MED ONE Stop: 11/29/20 03:48 Sodium Chloride (Sodium Chloride 0.9% 10 Ml Syringe) 10 ml FLUSH ASDIRECTED PRN PRN Reason: Keep Vein Open - Exam Physical Findings Comments:: Patient seen and examined by me and discussed with student.
[2020-12-01 12:11] VITALS: BP 136/84; PULSE 84
== END 2020-12-01 14:40 | disposition home or self-care (01) | DRG 788 ==
LOC: JD.OB 05:14 → UNDOADMIN 05:14 → UNDODISIN 12-01 14:40
PROVIDERS: ADMIT Obstetrics & Gynecology; ATTEND Obstetrics & Gynecology
PROC: 10D00Z1 Extraction of Products of Conception, Low, Open Approach (ICD-10-PCS; principal; 2020-11-29)
DX: O32.1XX0 Maternal care for breech presentation, not applicable or unspecified (principal); Z3A.39 39 weeks gestation of pregnancy; Z37.0 Single live birth; Z20.822 Contact with and (suspected) exposure to COVID-19
CPT/HCPCS: 01961; 36415; 59025; 85025; 85027; 86592; 86803; 86850; 86900; 86901; A9270-GY; J0690; J1885; J2175; J2270; J2590; J2765; J3010; J7120; J7121; U0002

== ENCOUNTER 2023-01-27 23:49 | Inpatient (IN) | payer SELFPAY ==
[2023-01-28] MEDS ORDERED: Bupivacaine 0.25% 10 ML SDV ONE
[2023-01-28] MEDS ORDERED: Nalbuphine 10 MG/0.5 ML Syringe IVPUSH PRN (03:40)
[2023-01-28] MEDS ORDERED: Sodium Chloride 0.9% 10 ML Syringe FLUSH PRN (03:40)
[2023-01-28] MEDS ORDERED: Ondansetron 4 MG/2 ML SDV IVPUSH PRN (03:40)
[2023-01-28] MEDS: Lactated Ringers 1,000 ML IV SCH ×2 (03:45→05:44)
[2023-01-28] MEDS ORDERED: Oxytocin/Lactated Ringers 10 UNIT/1,000 ML BAG IV SCH ×2 (03:45)
[2023-01-28 04:16] LABS: HEMATOCRIT 37.3 % (34.1-44.9); HEMOGLOBIN 12.3 gm/dl (11.2-15.7); MEAN PLATELET VOLUME 12.4 fl (9.4-12.3); PLATELET COUNT,PLT 155 K/mm3 (182-369); RED BLOOD CELL COUNT 3.97 M/mm3 (3.98-5.22); WHITE BLOOD CELL COUNT,WBC 8.59 K/mm3 (3.98-10.04)
[2023-01-28] MEDS ORDERED: fentaNYL 100 MCG/2 ML SDV EPIDUR PRN (04:53)
[2023-01-28] MEDS ORDERED: Bupivacaine/fentaNYL/NS 100 ML Bag EPIDUR PRN (04:53)
[2023-01-28] MEDS ORDERED: ePHEDrine 50 MG/ML SDV IVPUSH PRN (04:53)
[2023-01-28] MEDS ORDERED: diphenhydrAMINE 50 MG/ML SDV IVPUSH PRN (04:53)
[2023-01-28] MEDS ORDERED: Sodium Chloride 0.9% 10 ML Syringe FLUSH SCH (09:00)
[2023-01-28] MEDS ORDERED: Acetaminophen 325 MG Tab PO PRN (12:52)
[2023-01-28] MEDS ORDERED: Benzocaine/Menthol 20%-0.5% Spray 78 GM Cannister TOP PRN (12:52)
[2023-01-28] MEDS ORDERED: Docusate Sodium 100 MG Cap PO PRN (12:52)
[2023-01-28] MEDS ORDERED: Witch Hazel Medicated Pads 40/Jar TOP PRN (12:52)
[2023-01-28] MEDS: Ibuprofen 600 MG Tab PO PRN ×2 (14:13→21:01)
[2023-01-29] MEDS: Ibuprofen 600 MG Tab PO PRN ×2 (03:43→09:57)
[2023-01-29 15:50] VITALS: BP 122/77; PULSE 80
== END 2023-01-29 15:40 | disposition home or self-care (01) | DRG 807 ==
LOC: JD.OBCHECK 23:49 → JD.OB 23:52 → JD.OBCHECK 01-28 03:39 → JD.OB 01-28 03:40 → OBSVTOIN 01-28 11:32 → JD.OB 01-28 11:33
PROVIDERS: ADMIT Obstetrics & Gynecology; ATTEND Obstetrics & Gynecology
PROC: 10E0XZZ Delivery of Products of Conception, External Approach (ICD-10-PCS; principal; 2023-01-28)
PROC: 0KQM0ZZ Repair Perineum Muscle, Open Approach (ICD-10-PCS; 2023-01-28)
PROC: 3E0R3BZ Introduction of Anesthetic Agent into Spinal Canal, Percutaneous Approach (ICD-10-PCS; 2023-01-28)
PROC: 00HU33Z Insertion of Infusion Device into Spinal Canal, Percutaneous Approach (ICD-10-PCS; 2023-01-28)
DX: O34.211 Maternal care for low transverse scar from previous cesarean delivery (principal); Z37.0 Single live birth; O70.1 Second degree perineal laceration during delivery; Z3A.39 39 weeks gestation of pregnancy
CPT/HCPCS: 36415; 51702; 59409; 85027; 86592; 86850; 86900; 86901; A9270-GY; J2405; J2590; J3490; J7120